=== PATIENT | male | born 1985 | race Caucasian/White ===

== ENCOUNTER 2018-06-01 10:46 | Inpatient (IN) | payer BC ==
[~2018-06-01] VITALS: Ht 177.8 cm; Wt 108.0 kg
[2018-06-01] VITALS (176 sets, daily range): BP systolic 107–116; BP diastolic 49–67; PULSE 127–142; TEMP 98.5–99; O2SAT 49–100
[~2018-06-01 10:46] MED LIST: AMBIEN 10MG10 MG PO; AZITHROMYCIN250 MG PO; MYRBETR50MG PO; NEURONTIN300 MG/CAP PO; NORCO 325 MG-51 TAB PO; PHENERGAN 25 TA25 MG PO; PREDNISONE20 MG PO; QUESTRAN4 GM/9 GM PO; VIBERZI100 MG PO; ZIANA 1.2%-0.021 GEL TP
[2018-06-01 11:40] LABS: COLLECTION METHOD CATHETER
[2018-06-01 11:43] LABS: HEMATOCRIT 38.2 % (42.0-52.0); HEMOGLOBIN 12.2 g/dl (13.5-18.0); MEAN CELL VOLUME 77 fl (80.0-100.0); MEAN CORPUSCULAR HEMOGLOBIN 25 pg (27.0-31.0); MEAN CORPUSCULAR HGB CONC 32 g/dl (33.0-37.0); MEAN PLATELET VOLUME 9.2 fl (7.4-10.4); PLATELET COUNT 202 K/mm3 (130-400); RED BLOOD COUNT 4.95 M/mm3 (4.20-5.60); REDCELL DISTRIBUTION WIDTH-CV 13.7 % (11.5-14.5)
[2018-06-01 11:53] LABS: INR 1.4 (0.8-3.0)
[2018-06-01 11:53] LABS: MUCOUS Present /lpf; PH 5 (5-8); SQUAMOUS EPITHELIAL None Seen /hpf; URINE APPEARANCE Hazy; URINE BACTERIA Rare /hpf; URINE BILIRUBIN Negative (NEGATIVE); URINE BLOOD 1+ (NEGATIVE); URINE COLOR Yellow; URINE GLUCOSE Negative (NEGATIVE); URINE KETONE Negative (NEGATIVE); URINE LEUKOCYTE ESTERASE 3+ (NEGATIVE); URINE NITRATE Negative (NEGATIVE); URINE PROTEIN(semi-quant) Negative (NEGATIVE); URINE RBC 0-2 /hpf; URINE UROBILINOGEN Negative (NEGATIVE)
[2018-06-01 11:55] LABS: ALBUMIN 4.3 gm/dL (3.5-5.0); BILIRUBIN,TOTAL 0.2 mg/dL (0.0-1.0); CALCIUM 9.7 mg/dL (8.4-10.2); CREATININE, serum 0.85 mg/dL (0.66-1.25); POTASSIUM 3.9 mmol/L (3.4-5.0)
[2018-06-01 11:56] LABS: BAND 7 % (0-10); LYMPHOCYTE 16 % (20.0-51.0); NEUTROPHILS 67 % (42.0-75.2); PARTIAL THROMBOPLASTIN TIME 46.7 SECONDS (26.0-37.0); PLATELET ESTIMATE NORMAL (NORMAL); TOXIC GRANULATION PRESENT
[2018-06-01] MEDS ORDERED: DAZIDOX10 MG PO (12:08)
[2018-06-01 12:33] LABS: ERYTHROCYTE SEDIMENTATION RATE 33 mm/hr (0-15)
[2018-06-01] MEDS ORDERED: LOVENOX 4040 MG/0.4 SQ (15:56)
[2018-06-01] MEDS ORDERED: LIORESAL20 MG PO (17:16)
[2018-06-01] MEDS ORDERED: VALIUM 5MG T5 MG/TAB PO (17:18)
[2018-06-01] MEDS ORDERED: LIDODERM 5% PATC1 EA TP (17:20)
[2018-06-01] MEDS ORDERED: NEURONTIN400 MG/CAP PO (17:23)
[2018-06-01] MEDS ORDERED: FLONASE NASAL S16 GM NS (17:26)
[2018-06-02] VITALS (1160 sets, daily range): BP systolic 100–134; BP diastolic 50–101; PULSE 116–163; TEMP 98.2–101.4; O2SAT 41–100
[2018-06-02 05:51] LABS: MEAN CELL VOLUME 79 fl (80.0-100.0); MEAN CORPUSCULAR HGB CONC 31 g/dl (33.0-37.0); MEAN PLATELET VOLUME 9.6 fl (7.4-10.4); PLATELET COUNT 147 K/mm3 (130-400); RED BLOOD COUNT 3.75 M/mm3 (4.20-5.60); REDCELL DISTRIBUTION WIDTH-CV 13.8 % (11.5-14.5)
[2018-06-02 05:54] LABS: HEMATOCRIT 29.7 % (42.0-52.0); HEMOGLOBIN 9.3 g/dl (13.5-18.0); MEAN CORPUSCULAR HEMOGLOBIN 25 pg (27.0-31.0)
[2018-06-02 06:04] LABS: CREATININE, serum 0.83 mg/dL (0.66-1.25); POTASSIUM 4.2 mmol/L (3.4-5.0)
[2018-06-02 07:17] LABS: BAND 24 % (0-10); LYMPHOCYTE 13 % (20.0-51.0); NEUTROPHILS 55 % (42.0-75.2); PLATELET ESTIMATE NORMAL (NORMAL)
[2018-06-02 08:35] LABS: RETIC # 0.02 M/mm3 (0.02-0.16); RETIC % 0.4 % (0.5-3.52)
[2018-06-02 08:41] LABS: IRON,SERUM < 10 ug/dL (35-150)
[2018-06-02 08:51] LABS: TOTAL IRON BINDING CAPACITY 274 ug/dL (261-462)
[2018-06-02 09:17] LABS: FERRITIN 52 ng/mL (18-464)
[2018-06-03] VITALS (964 sets, daily range): BP systolic 100–130; BP diastolic 56–88; PULSE 108–126; TEMP 95–99.6; O2SAT 71–100
[2018-06-03 05:42] LABS: BASO % 0.2 % (0.0-2.0); EOS # 0.1 (0.0-0.7); EOS % 0.9 % (0-4.0); GRAN # 6.9 (1.4-6.5); GRAN % 69.8 % (42.2-75.2); LYMPH # 1.7 (1.2-3.4); LYMPH % 17.2 % (20.0-51.0); MEAN CELL VOLUME 79 fl (80.0-100.0); MEAN CORPUSCULAR HGB CONC 31 g/dl (33.0-37.0); MEAN PLATELET VOLUME 9.6 fl (7.4-10.4); MONO # 1.1 (0.1-0.6); MONO % 10.7 % (1.7-9.3); PLATELET COUNT 151 K/mm3 (130-400); RED BLOOD COUNT 3.47 M/mm3 (4.20-5.60)
[2018-06-03 05:44] LABS: HEMATOCRIT 27.3 % (42.0-52.0); HEMOGLOBIN 8.4 g/dl (13.5-18.0); MEAN CORPUSCULAR HEMOGLOBIN 24 pg (27.0-31.0)
[2018-06-03 05:54] LABS: CALCIUM 7.6 mg/dL (8.4-10.2); CREATININE, serum 0.56 mg/dL (0.66-1.25); POTASSIUM 3.5 mmol/L (3.4-5.0)
[2018-06-04 00:25] VITALS: BP 115/67; PULSE 121
[2018-06-04 04:12] VITALS: BP 131/68; PULSE 136; TEMP 99.9
[2018-06-04 06:22] LABS: BASO % 0.1 % (0.0-2.0); EOS # 0.3 (0.0-0.7); EOS % 2.8 % (0-4.0); GRAN # 6.2 (1.4-6.5); GRAN % 67.8 % (42.2-75.2); LYMPH # 1.8 (1.2-3.4); LYMPH % 19.8 % (20.0-51.0); MEAN CELL VOLUME 77 fl (80.0-100.0); MEAN CORPUSCULAR HGB CONC 32 g/dl (33.0-37.0); MEAN PLATELET VOLUME 10.2 fl (7.4-10.4); MONO # 0.8 (0.1-0.6); MONO % 9.2 % (1.7-9.3); PLATELET COUNT 233 K/mm3 (130-400); RED BLOOD COUNT 3.53 M/mm3 (4.20-5.60); REDCELL DISTRIBUTION WIDTH-CV 14.4 % (11.5-14.5)
[2018-06-04 06:32] LABS: HEMATOCRIT 27.1 % (42.0-52.0); HEMOGLOBIN 8.6 g/dl (13.5-18.0); MEAN CORPUSCULAR HEMOGLOBIN 24 pg (27.0-31.0)
[2018-06-04 06:33] LABS: CREATININE, serum 0.53 mg/dL (0.66-1.25); POTASSIUM 3.3 mmol/L (3.4-5.0)
[2018-06-04 06:55] LABS: THYROID STIMULATING HORMONE 1.17 uIU/mL (0.465-4.680)
[2018-06-04 07:47] VITALS: BP 128/73; PULSE 111; TEMP 97.4
[2018-06-04 11:34] VITALS: BP 131/76; PULSE 115; TEMP 98.4
[2018-06-04 15:12] VITALS: BP 136/78; PULSE 109; TEMP 98.4
[2018-06-04 18:51] VITALS: BP 123/77; PULSE 99; TEMP 97.5
[2018-06-05 06:08] LABS: BASO % 0.2 % (0.0-2.0); EOS # 0.3 (0.0-0.7); EOS % 3.4 % (0-4.0); GRAN % 64.3 % (42.2-75.2); LYMPH # 2.1 (1.2-3.4); LYMPH % 22.2 % (20.0-51.0); MEAN CELL VOLUME 77 fl (80.0-100.0); MEAN CORPUSCULAR HGB CONC 32 g/dl (33.0-37.0); MEAN PLATELET VOLUME 9.3 fl (7.4-10.4); MONO # 0.9 (0.1-0.6); MONO % 9.3 % (1.7-9.3); PLATELET COUNT 260 K/mm3 (130-400); RED BLOOD COUNT 3.67 M/mm3 (4.20-5.60); REDCELL DISTRIBUTION WIDTH-CV 14.4 % (11.5-14.5)
[2018-06-05 06:09] LABS: HEMATOCRIT 28.2 % (42.0-52.0); MEAN CORPUSCULAR HEMOGLOBIN 25 pg (27.0-31.0)
[2018-06-05 06:25] LABS: CALCIUM 8.2 mg/dL (8.4-10.2); CREATININE, serum 0.52 mg/dL (0.66-1.25); POTASSIUM 4.1 mmol/L (3.4-5.0)
[2018-06-05 06:38] VITALS: TEMP 101.6
[2018-06-05 07:40] VITALS: BP 123/79; PULSE 114; TEMP 100
[2018-06-05 11:20] VITALS: BP 133/81; PULSE 108; TEMP 98.8
[2018-06-05] MEDS ORDERED: COMBIRESP IH (14:26)
[2018-06-05 15:29] VITALS: BP 136/79; PULSE 102; TEMP 98.8
[2018-06-05 20:37] VITALS: BP 128/71; PULSE 104; TEMP 99
[2018-06-06 00:22] VITALS: BP 123/75; PULSE 98; TEMP 98.1
[2018-06-06 04:04] VITALS: BP 127/75; PULSE 86
[2018-06-06 07:27] LABS: MEAN CELL VOLUME 79 fl (80.0-100.0); MEAN CORPUSCULAR HGB CONC 31 g/dl (33.0-37.0); MEAN PLATELET VOLUME 9.8 fl (7.4-10.4); PLATELET COUNT 338 K/mm3 (130-400); RED BLOOD COUNT 3.86 M/mm3 (4.20-5.60); REDCELL DISTRIBUTION WIDTH-CV 14.2 % (11.5-14.5)
[2018-06-06 07:28] LABS: HEMATOCRIT 30.4 % (42.0-52.0); HEMOGLOBIN 9.4 g/dl (13.5-18.0); MEAN CORPUSCULAR HEMOGLOBIN 24 pg (27.0-31.0)
[2018-06-06 07:35] LABS: CREATININE, serum 0.45 mg/dL (0.66-1.25); POTASSIUM 4.4 mmol/L (3.4-5.0)
[2018-06-06 07:59] VITALS: BP 138/81; PULSE 88; TEMP 98.6
[2018-06-06 08:39] LABS: BAND 9 % (0-10); EOSINOPHIL 2 % (0-4); LYMPHOCYTE 41 % (20.0-51.0); NEUTROPHILS 36 % (42.0-75.2); PLATELET ESTIMATE NORMAL (NORMAL)
[2018-06-06 08:40] LABS: HYPOCHROMIA 2+; MICROCYTOSIS 1+
[2018-06-06] MEDS ORDERED: MONUROL 3 GM3 G/PKT PO (11:09)
[2018-06-06] MEDS ORDERED: FERROUS SU325 MG/TAB PO (11:09)
[2018-06-06] MEDS ORDERED: PROBIOTIC ACID1 EAC3 PO (11:10)
[2018-06-06] MEDS ORDERED: TESSALON P100 MG/CAP PO (11:10)
[2018-06-06] MEDS ORDERED: ZITHROMAX 250M250 MG PO (11:11)
== END 2018-06-06 13:51 | disposition home or self-care (01) | DRG 698 ==
LOC: COL.ER 10:46 → ICU 15:29 → MEDICAL 06-03 19:13
PROVIDERS: Hospitalist; Physician Assistant
PROC: 02HV33Z Insertion of Infusion Device into Superior Vena Cava, Percutaneous Approach (ICD-10-PCS; principal; 2018-06-03)
DX: T83.518A Infection and inflammatory reaction due to other urinary catheter, initial encounter (principal); A41.51 Sepsis due to Escherichia coli [E. coli]; N39.0 Urinary tract infection, site not specified; R00.0 Tachycardia, unspecified; D50.9 Iron deficiency anemia, unspecified; G83.89 Other specified paralytic syndromes; F41.9 Anxiety disorder, unspecified; J20.9 Acute bronchitis, unspecified; Q85.09 Other neurofibromatosis; R79.1 Abnormal coagulation profile; Z23 Encounter for immunization
CPT/HCPCS: 99222-AI; 99232-AI; 99233-AI; 99239; A4216; C1751; C1894; J0692; J0696; J1650; J2185; J3475; J7030; J7040; Q9967

== ENCOUNTER → 2018-08-05 | Outpatient (RCR) | payer BC ==
[~2018-08-05] MED LIST changes: +COMBIRESP IH; +DAZIDOX10 MG PO; +FERROUS SU325 MG/TAB PO; +FLONASE NASAL S16 GM NS; +LIDODERM 5% PATC1 EA TP; +LIORESAL20 MG PO; +LOVENOX 4040 MG/0.4 SQ; +MONUROL 3 GM3 G/PKT PO; +NEURONTIN400 MG/CAP PO; +PROBIOTIC ACID1 EAC3 PO; +TESSALON P100 MG/CAP PO; +VALIUM 5MG T5 MG/TAB PO; +ZITHROMAX 250M250 MG PO
== END | disposition home or self-care (01) ==
LOC: WSPT → WSOT 05-07 09:38 → WSC 05-10 16:30 → WSPT 05-14 11:00 → WSOT 05-18 08:15 → WSPT 05-20 09:00 → WSC 05-21 08:45 → WSOT 05-25 09:00 → WSC 06-11 09:15 → WSOT 06-15 09:00 → WSC 06-18 09:15 → WSOT 06-22 09:00 → WSC 06-25 09:15 → WSPT 07-08 09:00 → WSC 07-09 09:30 → WSPT 07-13 09:00 → WSC 07-22 09:00 → WSPT 07-23 09:45 → WSOT 10:00
DX: Z48.3 Aftercare following surgery for neoplasm (principal); Z85.848 Personal history of malignant neoplasm of other parts of nervous tissue; Q85.02 Neurofibromatosis, type 2; Z79.01 Long term (current) use of anticoagulants; Z79.899 Other long term (current) drug therapy

== ENCOUNTER 2018-11-05 09:30 | Outpatient (RCR) | payer BC | END 2018-11-08 | disposition home or self-care (01) | LOC: WSPT | DX: Q85.02 Neurofibromatosis, type 2 (principal) ==

== ENCOUNTER 2019-01-25 08:30 | Outpatient (RCR) | payer BC | END 2019-02-07 | disposition still patient (30) | LOC: WSPT | DX: C47.3 Malignant neoplasm of peripheral nerves of thorax (principal) ==

== ENCOUNTER 2019-02-25 10:45 | Outpatient (RCR) | payer BC | END 2019-03-25 15:11 | disposition home or self-care (01) | LOC: WSPT 10:45 | DX: D33.4 Benign neoplasm of spinal cord (principal) ==

== ENCOUNTER 2019-04-26 06:36 | Inpatient (IN) | payer BC ==
[2019-04-26] VITALS (487 sets, daily range): BP systolic 124–157; BP diastolic 86–108; PULSE 108–120; TEMP 97.8–99.6; O2SAT 83–100
[~2019-04-26] VITALS: Ht 177.8 cm; Wt 121.3 kg
[2019-04-26 07:07] LABS: HEMATOCRIT 46.4 % (42.0-52.0); HEMOGLOBIN 14.6 g/dl (13.5-18.0); MEAN CELL VOLUME 80 fl (80.0-100.0); MEAN CORPUSCULAR HEMOGLOBIN 25 pg (27.0-31.0); MEAN CORPUSCULAR HGB CONC 32 g/dl (33.0-37.0); MEAN PLATELET VOLUME 8.2 fl (7.4-10.4); PLATELET COUNT 281 K/mm3 (130-400); RED BLOOD COUNT 5.79 M/mm3 (4.20-5.60); REDCELL DISTRIBUTION WIDTH-CV 19.4 % (11.5-14.5)
[2019-04-26 07:21] LABS: ALBUMIN 4.1 gm/dL (3.5-5.0); BILIRUBIN,TOTAL 0.4 mg/dL (0.0-1.0); CALCIUM 9.4 mg/dL (8.4-10.2); CREATININE, serum 0.81 (0.66-1.25); POTASSIUM 4.7 mmol/L (3.4-5.0); TOTAL PROTEIN 7.5 gm/dL (6.4-8.2)
[2019-04-26 07:23] LABS: ARTERIAL BLD GAS O2 SATURATION 95.9 % (92-100); ARTERIAL BLD GAS TCO2 CT 20.4; ARTERIAL BLOOD GAS BASE EXCESS -3.1 (-2-2); ARTERIAL BLOOD GAS HCO3 19.5 meq/L (22-26); ARTERIAL BLOOD GAS PCO2 28.8 mmHg (35-45); ARTERIAL BLOOD GAS PO2 76.3 mmHg (80-100); ARTERIAL BLOOD GAS pH 7.45 (7.35-7.45)
[2019-04-26] MEDS ORDERED: DULERA1 AR1 IH (07:25)
[2019-04-26] MEDS ORDERED: LEVAQUIN 5500 MG/TA1 PO (07:26)
[2019-04-26] MEDS ORDERED: COLESTID 1GM1 G PO (07:27)
[2019-04-26] MEDS ORDERED: LOMOTIL 0.025 M1 TAB PO (07:27)
[2019-04-26] MEDS ORDERED: VIAGRA50 M1 (07:28)
[2019-04-26] MEDS ORDERED: CELEXA 20MG20 MG/TAB PO (07:28)
[2019-04-26 07:30] LABS: INR 1.3 (0.8-3.0); PROTHROMBIN TIME 15.4 SECONDS (9.7-12.8)
[2019-04-26] MEDS ORDERED: CEPHALEXIN500 M1 PO (07:31)
[2019-04-26] MEDS ORDERED: DECADRON 1MG TAB1 MG PO (07:33)
[2019-04-26 07:34] LABS: C-REACTIVE PROTEIN 19.8 mg/dL (0.0-0.9)
[2019-04-26] MEDS ORDERED: PRILOTC (07:34)
[2019-04-26 07:35] LABS: TROPONIN-I 0.04 ng/mL (0.000-0.035)
[2019-04-26] MEDS ORDERED: DANTROLENE PO (07:35)
[2019-04-26] MEDS ORDERED: SENNA-S 50 MG-81 TAB PO (07:36)
[2019-04-26] MEDS ORDERED: VIBERZI100 MG PO (07:36)
[2019-04-26] MEDS ORDERED: MS CONTIN 330 MG/TAB PO (07:36)
[2019-04-26] MEDS ORDERED: NYSTATIN OR100 MU/ML PO (07:38)
[2019-04-26 07:49] LABS: BAND 21 % (0-10); BASOPHIL 1 % (0-2); LYMPHOCYTE 5 % (20.0-51.0); METAMYELOCYTE 1 % (0-0); NEUTROPHILS 59 % (42.0-75.2)
[2019-04-26 07:50] LABS: ANISOCYTOSIS 2+; PLATELET ESTIMATE NORMAL (NORMAL); POLYCHROMASIA 1+
[2019-04-26 08:03] LABS: COLLECTION METHOD CATHETER
[2019-04-26 08:14] LABS: MUCOUS Present /lpf; PH 5 (5-8); SQUAMOUS EPITHELIAL 0-2 /hpf; URINE APPEARANCE Clear; URINE BACTERIA None Seen /hpf; URINE BILIRUBIN Negative (NEGATIVE); URINE BLOOD Negative (NEGATIVE); URINE COLOR Amber; URINE GLUCOSE Negative (NEGATIVE); URINE KETONE Trace (NEGATIVE); URINE LEUKOCYTE ESTERASE Negative (NEGATIVE); URINE NITRATE Negative (NEGATIVE); URINE PROTEIN(semi-quant) 1+ (NEGATIVE); URINE RBC 0-2 /hpf; URINE UROBILINOGEN Negative (NEGATIVE)
--- NOTE | 2019-04-26 10:45 | NUR ---
PT TAKEN VIA BED TO CT BY RN AND RT.
--- NOTE | 2019-04-26 11:15 | NUR ---
PT RETURNED FROM CT.
--- NOTE | 2019-04-26 12:07 | NUR ---
Vancomycin Initial Dosing Pharmacy Note Ordering provider: Tabby Rivera W., MD Indication/duration: PNA LABS: SCr 0.81 Recommendation: Loading dose: 1.5 grams given in ED 04/26/19 @ 0800 Maintenance dose: 1.5 grams Q8H Trough goal: 15-20 ug/mL Will continue to follow.
--- NOTE | 2019-04-26 12:22 | NUR ---
BERTO WITH US PERFORMING ECHO AND VENOUS DOPPLER.
--- NOTE | 2019-04-26 16:25 | NUR ---
METAL FABRICATION SUPERVISOR student met with the patient to discuss a discharge plan. The patient lives in [place] with his nephew and nephew's girlfriend, and a roommate. The patient is wheelchair dependent and uses not other DME. Patient reports independence with ADLs. The patient's PCP is Dr. Burt and patient receives medications from [facility] with no difficulties. The patient does not have advanced directives in the EMR but reports he is in the process of completing them. When complete they will designate his brother, Triston Washington. The patient plans to return home upon discharge with his brother Triston or patient's [id number], Marilee providing transportation. There are no additional needs at this time.
--- NOTE | 2019-04-26 19:15 | NUR ---
Bedside report received from DANIEL Sandra.
--- NOTE | 2019-04-26 20:00 | NUR ---
Patient resting in bed at this time. Friend at bedside. Patient has complaints of 8/10 pain in his back that radiates to his chest. He is requesting medications. also has complaints of heartburn and would like some more tums, To be provided. Patient is alert and oriented x4. assessment complete. Assessment reveals clear lung sounds in the upper lobes with lower lobes having fine crackles as well as being diminished. HR and rhythm are regular, patient is tachycardic. Bowel sounds active x4. Peripheral pulses are all palpable. Patient has some foliculitis to his chest with small red spots. Has ointment for it. Patient has no further needs at this time. Will return with medications. Will continue to monitor. Call light within reach.
--- NOTE | 2019-04-26 21:55 | NUR ---
Patient prepped for intubation at this time. Time out performed. Anesthesia is here to intubate. Yaritza RT and Galina RT here to assist. Asthesia draws their own medications from RSI kit. 220 - medications given at this time by anesthesia. Soft wrist restraints applied. 2202 - Patient intubated. confirmed with auscultation and CO2 monitor. BP and HR remains stable. 2206 - Intubation complete. Patient is on ventilator at this time and tolerating well. Anesthesia signs for medications and leaves. Patient prepped for Central line placement 2208 - Time out performed. All unnecessary staff removed from the room. Masks on all staff present. 2210 - Veceronium drawn up and given IV per Dr. Rey for central line placement. 2230 - Jugular line in place at this time. Vitals remain stable. 2240 - Central line complete at this time. Dressing applied and Patient placed HOB at 30 degrees for ventilation. Medications to be titrated for patient comfort as she is starting to wake up.
[2019-04-27] VITALS (744 sets, daily range): BP systolic 120–138; BP diastolic 66–91; PULSE 68–118; TEMP 97.9–98.6; O2SAT 71–100
--- NOTE | 2019-04-27 | NUR ---
Patient asleep, but awakens to name. Patient rates pain a 2/10 now since having medications. Assessment complete with no changes from previous exam. Patient has no further needs at this time. Will continue to monitor. Call light within reach.
--- NOTE | 2019-04-27 04:00 | NUR ---
Patient sleeping in bed comfortably. Patient does not want to move positions at this time. Says he is comfortable and his back is not hurting like this. Patient rates pain 3/10, which is tolerable. Assessment complete with no changes from previous exam. Patient has no further needs, Will continue to monitor. Call light within reach.
[2019-04-27 06:26] LABS: BASO % 0.4 % (0.0-2.0); GRAN # 4.7 (1.4-6.5); GRAN % 84.4 % (42.2-75.2); HEMATOCRIT 41.6 % (42.0-52.0); HEMOGLOBIN 12.9 g/dl (13.5-18.0); LYMPH # 0.5 (1.2-3.4); LYMPH % 9.4 % (20.0-51.0); MEAN CELL VOLUME 82 fl (80.0-100.0); MEAN CORPUSCULAR HEMOGLOBIN 25 pg (27.0-31.0); MEAN CORPUSCULAR HGB CONC 31 g/dl (33.0-37.0); MEAN PLATELET VOLUME 9.4 fl (7.4-10.4); MONO # 0.3 (0.1-0.6); MONO % 4.4 % (1.7-9.3); PLATELET COUNT 236 K/mm3 (130-400); RED BLOOD COUNT 5.07 M/mm3 (4.20-5.60); REDCELL DISTRIBUTION WIDTH-CV 18.6 % (11.5-14.5)
[2019-04-27 06:55] LABS: CALCIUM 8.9 mg/dL (8.4-10.2); CREATININE, serum 0.51 (0.66-1.25)
--- NOTE | 2019-04-27 08:00 | NUR ---
Shift assessment complete at this time. Plan of care reviewed at bedside with patient. Additional time taken to address any other needs or concerns. Vitals stable at this time. Pt reports mild to moderate back pain. Pt states that pain is tolerable until scheduled MS contin can be administered. Pt denies any other pains or discomforts. Bed in low position, call light within reach. Will continue to monitor.
--- NOTE | 2019-04-27 12:00 | NUR ---
Pt resting comfortably in bed. Reports back pain as tolerable and declines intervention at this time. Vitals stable at this time. Pt denies any other pains or discomfort at this time. Bed in low et locked position, call light within reach. Will continue to monitor.
--- NOTE | 2019-04-27 16:00 | NUR ---
Pt awake resting in bed. Reports mild to moderate back pain that is increasing. Will administer PRN analgesic per orders. Denies any other pain or complaints. Vitals stable at this time. Bed in low position, call light within reach, will continue to monitor.
--- NOTE | 2019-04-27 17:58 | NUR ---
VANC TGH = 6.45 W/1.5GM Q8H, INCREASE FREQ TO Q6H
--- NOTE | 2019-04-27 19:15 | NUR ---
Received report from DANEIL Berry.
--- NOTE | 2019-04-27 19:23 | NUR ---
Bedside report given to DANIEL Gustafson.
--- NOTE | 2019-04-27 20:00 | NUR ---
Patient remains on AirVo at 40L/min with FiO2 of 34% and is tolerating well.
[2019-04-28] VITALS (293 sets, daily range): BP systolic 114–135; BP diastolic 60–86; PULSE 78–117; TEMP 97.9–98.2; O2SAT 80–100
[2019-04-28 05:27] LABS: BASO % 0.1 % (0.0-2.0); GRAN # 8.5 (1.4-6.5); GRAN % 89.8 % (42.2-75.2); HEMATOCRIT 38.9 % (42.0-52.0); HEMOGLOBIN 11.9 g/dl (13.5-18.0); LYMPH # 0.3 (1.2-3.4); MEAN CELL VOLUME 83 fl (80.0-100.0); MEAN CORPUSCULAR HEMOGLOBIN 26 pg (27.0-31.0); MEAN CORPUSCULAR HGB CONC 31 g/dl (33.0-37.0); MEAN PLATELET VOLUME 9.1 fl (7.4-10.4); MONO # 0.6 (0.1-0.6); MONO % 5.9 % (1.7-9.3); PLATELET COUNT 270 K/mm3 (130-400); RED BLOOD COUNT 4.67 M/mm3 (4.20-5.60); REDCELL DISTRIBUTION WIDTH-CV 18.6 % (11.5-14.5)
[2019-04-28 05:41] LABS: CALCIUM 8.6 mg/dL (8.4-10.2); CREATININE, serum 0.5 (0.66-1.25); POTASSIUM 4.2 mmol/L (3.4-5.0)
--- NOTE | 2019-04-28 07:00 | NUR ---
Gave report to DANIEL Spain.
--- NOTE | 2019-04-28 07:00 | NUR ---
Patient report recieved from DANIEL Gustafson. Patient resting in bed with MIVF running at ordered rate to uncomplicated LAC IV. Patrick catheter in place with positive UO. Alesha denies needs at this time. Care assumed.
--- NOTE | 2019-04-28 09:10 | NUR ---
Dr. Rivera rounds at this time. CPOE orders entered for patient transfer to medical floor. Care ongoing.
--- NOTE | 2019-04-28 09:27 | NUR ---
Report provided to DANIEL Cee.
--- NOTE | 2019-04-28 09:39 | NUR ---
The patient has orders to move to the medical floor this day.
--- NOTE | 2019-04-28 09:57 | NUR ---
Initial visit; Patient thanked Seismograph Chief for looking in on him and offering God's blessings.
--- NOTE | 2019-04-28 12:00 | NUR ---
Pt assessment complete. Alert and oriented x4. On 4LO2 via NC, SpO2 100%. Denies SOB. Pt c/o back pain, rate 5-6. PRN oxycodone given as requested bt patient. Patient able to move self in bed. Needs 2 person assist to/from bedside commode. Able to make needs known. Patrick cath secured and intact. Urine clear, yellow. IV to RAC and LAC CDI, patent. Needs met. Call light within reach.
--- NOTE | 2019-04-28 18:28 | NUR ---
Pt sitting up comfortably in bed talking with friend at bedside. Friend brought own dinner for pt. Pt requested no need for dinner tray. Current pain level to back was 4/10 which is bearable for him. However, pt requested PRN valium for facial redness and bilateral lower extremity spasms. Denies SOB or any other discomfort. On 4L O2 via NC. Patrick catheter intact and draining clear yellow urine. On tele monitor, sinus tach, HR 116. Needs met at this time. Personal items and call light within reach.
--- NOTE | 2019-04-28 20:25 | NUR ---
Up to bedside commode and returned to bed. Assessment complete. Left lower lobe crackles otherwise clear. Heart sounds normal. Bowels active x4. Pulses present throughout. Bilateral lower leg edema +2 present. Patrick to dependent drainage-clear yellow urine. Rating pain in legs and back 6/10. Provided with scheduled MS contin CR and PRN oxycodone at this time. Denies other needs. Call light in reach.
--- NOTE | 2019-04-29 00:34 | NUR ---
Resting in bed. Denies needs. Call light in reach.
[2019-04-29 03:32] VITALS: BP 105/67; PULSE 94; TEMP 98
--- NOTE | 2019-04-29 05:14 | NUR ---
Rating pain 6/10 in back. Provided with PRN oxycodone at this time. Denies other needs.
--- NOTE | 2019-04-29 05:46 | NUR ---
Patient required x2 doses of oxycodone during night. x1 bowel movement at beginning of night. Otherwise uneventful. Resting in bed this AM. Call light in reach.
--- NOTE | 2019-04-29 07:13 | NUR ---
Report given to DANIEL Platt
[2019-04-29 08:26] LABS: EOS % 0.5 % (0-4.0); GRAN # 4.5 (1.4-6.5); GRAN % 73.3 % (42.2-75.2); HEMOGLOBIN 10.3 g/dl (13.5-18.0); LYMPH # 0.7 (1.2-3.4); LYMPH % 10.7 % (20.0-51.0); MEAN CELL VOLUME 81 fl (80.0-100.0); MEAN CORPUSCULAR HEMOGLOBIN 25 pg (27.0-31.0); MEAN CORPUSCULAR HGB CONC 31 g/dl (33.0-37.0); MEAN PLATELET VOLUME 8.6 fl (7.4-10.4); MONO # 0.9 (0.1-0.6); MONO % 14.5 % (1.7-9.3); PLATELET COUNT 272 K/mm3 (130-400); RED BLOOD COUNT 4.08 M/mm3 (4.20-5.60); REDCELL DISTRIBUTION WIDTH-CV 18.9 % (11.5-14.5)
[2019-04-29 08:28] LABS: HEMATOCRIT 33.2 % (42.0-52.0)
[2019-04-29 08:36] VITALS: BP 140/74; PULSE 80; TEMP 98
[2019-04-29 08:44] LABS: CALCIUM 8.6 mg/dL (8.4-10.2); CREATININE, serum 0.55 (0.66-1.25); MAGNESIUM 2.1 mg/dL (1.6-2.3); POTASSIUM 3.9 mmol/L (3.4-5.0)
--- NOTE | 2019-04-29 09:31 | NUR ---
Patient inquired about receiving Miralax and Senna d/t fear of having loose stools when discharged. This student nurse consulted with primary nurse who stated to hold the Miralax and administer the Senna. Senna administered and Miralax held.
[2019-04-29 09:49] VITALS: BP 119/62; PULSE 120; TEMP 98.4
[2019-04-29] MEDS ORDERED: LEVAQUIN 5500 MG/TA1 PO (10:13)
[2019-04-29] MEDS ORDERED: PREDNISONE20 MG PO (10:20)
--- NOTE | 2019-04-29 10:41 | NUR ---
Sock Folder attended clinical rounds with the team. SW followed up with patient who is to discharge today. Patient has no concerns about returning home upon discharge.
[2019-04-29 11:40] VITALS: BP 137/109; PULSE 114; TEMP 97.9
--- NOTE | 2019-04-29 13:15 | NUR ---
DISCHARGE INFORMATION GIVEN TO PT, SIGANTURES OBTIANED. NO QUESTIONS ASKED. PT STATED HE WASNT CONVINCED ON HIS DISCHARGE RATIONELLE AND DX. IVS AND SONG REMOVED BY STUDENT NURSE. PT HAS BEEN ON RA THIS DAY WITHOUT ISSUE. PT REQUESTED PAIN PILL PRIOR TO DC TO HELP WITH PAIN FROM TRASNFERING SEVERAL TIMES TO GET OUT OF FACTILITY. NO OTHER ISSUES OR CONSERNS VOICED.
--- NOTE | 2019-04-29 13:54 | NUR ---
Primary nurse was assisted with [phone] patient care by [employer] student Mishel Raphael and [employer] instructor Freida Hunt RN-.
== END 2019-04-29 13:15 | disposition home or self-care (01) | DRG 189 ==
LOC: COL.ER 06:36 → ICU 07:51 → MEDICAL 04-28 10:50
PROVIDERS: Emergency Medicine; Nurse Practitioner Family; Physician Assistant; ADMIT Student in an Organized Health Care Education/Training Program
DX: J96.01 Acute respiratory failure with hypoxia (principal); I21.A1 Myocardial infarction type 2; J18.0 Bronchopneumonia, unspecified organism; K56.7 Ileus, unspecified; E66.9 Obesity, unspecified; R00.0 Tachycardia, unspecified; R73.9 Hyperglycemia, unspecified; K59.00 Constipation, unspecified; G83.10 Monoplegia of lower limb affecting unspecified side; Q85.00 Neurofibromatosis, unspecified; Z68.38 Body mass index [BMI] 38.0-38.9, adult; Z99.3 Dependence on wheelchair; Z92.3 Personal history of irradiation
CPT/HCPCS: 99223-AI; 99232-AI; 99239; J1650; J1940; J1956; J2543; J2920; J3370; J7030; J7050; J7512; Q9967

== ENCOUNTER 2019-06-24 12:45 | Outpatient (RCR) | payer BC ==
[~2019-06-24 12:45] MED LIST changes: +CELEXA 20MG20 MG/TAB PO; +CEPHALEXIN500 M1 PO; +COLESTID 1GM1 G PO; +DANTROLENE PO; +DECADRON 1MG TAB1 MG PO; +DULERA1 AR1 IH; +LEVAQUIN 5500 MG/TA1 PO; +LOMOTIL 0.025 M1 TAB PO; +MS CONTIN 330 MG/TAB PO; +NYSTATIN OR100 MU/ML PO; +PRILOTC; +SENNA-S 50 MG-81 TAB PO; +VIAGRA50 M1
== END 2019-06-28 | disposition home or self-care (01) ==
LOC: WSPT
DX: Q85.02 Neurofibromatosis, type 2 (principal)

== ENCOUNTER 2019-09-14 14:15 | Outpatient (RCR) | payer BC | END 2019-10-05 | disposition home or self-care (01) | LOC: WSPT | DX: Q85.02 Neurofibromatosis, type 2 (principal) ==

== ENCOUNTER 2019-11-01 19:36 | Emergency (ER) | payer BC ==
[~2019-11-01] VITALS: Ht 177.8 cm; Wt 113.6 kg
[2019-11-01 19:45] VITALS: BP 134/84; TEMP 98
[2019-11-01 21:40] VITALS: PULSE 98
== END 2019-11-01 21:40 | disposition home or self-care (01) ==
LOC: COL.ER 19:36
DX: S29.9XXA Unspecified injury of thorax, initial encounter (principal); Q85.02 Neurofibromatosis, type 2; R40.2412 Glasgow coma scale score 13-15, at arrival to emergency department; W05.0XXA Fall from non-moving wheelchair, initial encounter; Y92.009 Unspecified place in unspecified non-institutional (private) residence as the place of occurrence of the external cause
CPT/HCPCS: A9284; J3010

== ENCOUNTER → 2020-01-13 | Outpatient (CLI) | payer BC | LOC: COL.RAD 10:55 | DX: R05 Cough (principal) ==

== ENCOUNTER 2020-02-15 15:00 | Outpatient (RCR) | payer BC | END 2020-02-29 | LOC: WSC | DX: Q85.00 Neurofibromatosis, unspecified (principal) ==

== ENCOUNTER 2020-11-01 22:00 | Emergency (ER) | payer OTHER, BC, MEDICARE ==
[~2020-11-01] VITALS: Ht 177.8 cm; Wt 163.6 kg
[2020-11-01 22:02] VITALS: TEMP 96
[2020-11-01 23:53] VITALS: BP 148/101; PULSE 99
== END 2020-11-01 23:47 | disposition home or self-care (01) ==
LOC: COL.ER 22:00
DX: S29.012A Strain of muscle and tendon of back wall of thorax, initial encounter (principal); R60.0 Localized edema; Z87.828 Personal history of other (healed) physical injury and trauma; Z88.1 Allergy status to other antibiotic agents; Z98.890 Other specified postprocedural states; Z79.51 Long term (current) use of inhaled steroids; V43.52XA Car driver injured in collision with other type car in traffic accident, initial encounter

== ENCOUNTER → 2020-12-17 | Outpatient (CLI) | payer OTHER | LOC: COL.RAD 07:02 | DX: C72.0 Malignant neoplasm of spinal cord (principal); C79.89 Secondary malignant neoplasm of other specified sites; Z98.1 Arthrodesis status; V89.2XXD Person injured in unspecified motor-vehicle accident, traffic, subsequent encounter | CPT/HCPCS: A9585 ==

== ENCOUNTER → 2021-04-01 | Outpatient (CLI) | payer MEDICARE, BC | LOC: COL.RAD 10:38 | DX: K21.9 Gastro-esophageal reflux disease without esophagitis (principal); Z92.3 Personal history of irradiation; Z92.21 Personal history of antineoplastic chemotherapy ==

== ENCOUNTER 2021-10-23 11:05 | Outpatient (RCR) | payer MEDICARE, OTHER | END 2021-11-02 | disposition still patient (30) | LOC: WSPT | DX: M54.9 Dorsalgia, unspecified (principal); R29.898 Other symptoms and signs involving the musculoskeletal system ==

== ENCOUNTER 2021-11-27 08:00 | Outpatient (RCR) | payer MEDICARE, OTHER | END 2021-12-03 | disposition home or self-care (01) | LOC: WSPT | DX: Q85.00 Neurofibromatosis, unspecified (principal); M54.9 Dorsalgia, unspecified; R29.898 Other symptoms and signs involving the musculoskeletal system; R53.1 Weakness ==

== ENCOUNTER 2022-01-01 09:45 | Outpatient (RCR) | payer MEDICARE, OTHER | END 2022-01-02 | disposition home or self-care (01) | LOC: WSPT | DX: M54.9 Dorsalgia, unspecified (principal); R29.898 Other symptoms and signs involving the musculoskeletal system ==

== ENCOUNTER 2022-01-31 13:30 | Outpatient (RCR) | payer MEDICARE, OTHER | END 2022-02-02 | disposition home or self-care (01) | LOC: WSPT | DX: Q85.00 Neurofibromatosis, unspecified (principal); R29.898 Other symptoms and signs involving the musculoskeletal system; M54.9 Dorsalgia, unspecified ==

== ENCOUNTER 2022-02-19 09:00 | Outpatient (RCR) | payer MEDICARE, OTHER | END 2022-03-05 | disposition home or self-care (01) | LOC: WSPT | DX: M54.9 Dorsalgia, unspecified (principal); R53.1 Weakness; Q85.00 Neurofibromatosis, unspecified ==

== ENCOUNTER 2023-12-21 12:49 | Inpatient (IN) | payer MEDICARE, OTHER ==
[~2023-12-21] VITALS: Ht 177.8 cm; Wt 124.5 kg
[2023-12-21] MEDS ORDERED: Acetaminophen 325 MG TAB PO ONE (13:45)
[2023-12-21] MEDS ORDERED: NS 1,000 ML IV ONE (13:45)
[2023-12-21] MEDS ORDERED: Albuterol/Ipratropium 3 MG-0.5 MG/3 ML Neb Soln IH ONE (13:45)
[2023-12-21] MEDS ORDERED: NEURONTIN600 MG/TAB PO (13:53)
[2023-12-21] MEDS ORDERED: DANTRIUM100 MG PO (13:54)
[2023-12-21] MEDS ORDERED: CIALIS5 MG PO (13:54)
[2023-12-21] MEDS ORDERED: REGLAN 10MG10 MG/TAB PO (13:55)
[2023-12-21] MEDS ORDERED: ZOFRAN ODT8 MG PO ×2 (13:55→14:43)
[2023-12-21] MEDS ORDERED: NEOMYCIN IL (13:56)
[2023-12-21] MEDS ORDERED: [UNRECOGNIZED DRUG - OTHER] IL (13:56)
[2023-12-21] MEDS ORDERED: CELEXA40 MG PO (13:57)
[2023-12-21] MEDS ORDERED: LEVSIN 0.10.125 MG/T PO (13:57)
[2023-12-21] MEDS ORDERED: TESSALON P100 MG/CAP PO (13:58)
[2023-12-21 13:59] LABS: BASO % 0.3 % (0.0-2.0); EOS # 0.1 K/mm3 (0.0-0.7); EOS % 0.6 % (0.0-4.0); GRAN # 11.4 K/mm3 (1.4-6.5); GRAN % 81.4 % (42.2-75.2); HEMATOCRIT 37.5 % (42.0-52.0); HEMOGLOBIN 11.7 g/dl (13.5-18.0); LYMPH # 1.1 K/mm3 (1.2-3.4); LYMPH % 7.8 % (20.0-51.0); MEAN CELL VOLUME 81 fl (80.0-100.0); MEAN CORPUSCULAR HEMOGLOBIN 25 pg (27-31); MEAN CORPUSCULAR HGB CONC 31 g/dl (33.0-37.0); MEAN PLATELET VOLUME 9.1 fl (7.4-10.4); MONO # 1.3 K/mm3 (0.1-0.6); PLATELET COUNT 364 K/mm3 (130-400); RED BLOOD COUNT 4.65 M/mm3 (4.20-5.60); REDCELL DISTRIBUTION WIDTH-CV 15.2 % (11.5-14.5)
[2023-12-21 14:35] LABS: ALANINE AMINOTRANSFERASE 12 U/L (0-55); ALBUMIN 3.2 g/dL (3.5-5.0); ALKALINE PHOSPHATASE 88 U/L (40-150); ANION GAP 12 mmol/L (7-16); AST,SGOT 18 U/L (5-34); BILIRUBIN,TOTAL 0.2 mg/dL (0.2-1.2); BLOOD UREA NITROGEN 10 mg/dL (9-21); C-REACTIVE PROTEIN 13.79 mg/dL (0.00-0.50); CALCIUM 9.5 mg/dL (8.4-10.2); CHLORIDE 101 mEq/L (98-107); CREATININE, serum 0.67 mg/dL (0.72-1.25); GLUCOSE 125 mg/dL (70-99); POTASSIUM 3.8 mEq/L (3.5-4.5); SODIUM 137 mEq/L (136-145); TOTAL PROTEIN 7.5 g/dl (6.2-8.1)
[2023-12-21] MEDS ORDERED: ROXICODONE15 MG PO (14:40)
[2023-12-21] MEDS ORDERED: VALIUM 10MG10 MG/TAB PO (14:41)
[2023-12-21] MEDS ORDERED: XANAX 1MG1 MG PO (14:44)
[2023-12-21 14:46] LABS: TROPONIN-I < 0.010 ng/mL (0.00-0.033)
[2023-12-21] MEDS ORDERED: SANCTURA XR60 MG PO (14:52)
[2023-12-21] MEDS ORDERED: PROTONIX20 MG PO (14:53)
[2023-12-21] MEDS ORDERED: NS 100 ML IV SCH (14:54)
[2023-12-21] MEDS ORDERED: Iohexol 300 - 100 ML VIAL IV ONE (14:54)
[2023-12-21] MEDS ORDERED: cefTRIAXone 1 G in Water For Injection,Sterile 10 ML IV ONE (15:45)
[2023-12-21] MEDS ORDERED: predniSONE 20 MG TAB PO SCH (16:22)
[2023-12-21] MEDS ORDERED: Benzonatate 100 MG CAP PO SCH (16:23)
[2023-12-21] MEDS ORDERED: guaiFENesin/Dextromethorphan Oral Soln 200-20 MG/10 ML UD PO PRN (16:30)
[2023-12-21] MEDS ORDERED: Albuterol/Ipratropium 3 MG-0.5 MG/3 ML Neb Soln IH PRN (16:30)
[2023-12-21] MEDS ORDERED: oxyCODONE 5 MG TAB PO PRN (16:30)
[2023-12-21] MEDS ORDERED: ALPRAZolam 0.5 MG TAB PO PRN (16:30)
[2023-12-21] MEDS ORDERED: Acetaminophen 500 MG TAB PO PRN (16:30)
[2023-12-21] MEDS ORDERED: Hyoscyamine 0.125 MG Sublingual TAB PO PRN (16:30)
[2023-12-21] MEDS ORDERED: Ondansetron 4 MG/2 ML VIAL IV PRN (16:30)
[2023-12-21] MEDS ORDERED: Diphenoxylate/Atropine 2.5-0.025 MG TAB PO PRN (16:30)
[2023-12-21 16:33] LABS: COLLECTION METHOD CATHETER
[2023-12-21 16:40] LABS: PH 5.5 (5.0-8.5); URINE APPEARANCE CLEAR (CLEAR/HAZY); URINE BLOOD NEGATIVE (NEGATIVE); URINE COLOR Dark Yellow (YELLOW); URINE GLUCOSE NEGATIVE (NEGATIVE); URINE KETONE NEGATIVE (NEGATIVE); URINE NITRATE NEGATIVE (NEGATIVE); URINE PROTEIN(semi-quant) NEGATIVE (NEGATIVE); URINE UROBILINOGEN 0.2 E.U/dL (0.2-1.0)
[2023-12-21] MEDS ORDERED: Azithromycin 250 MG TAB PO SCH (17:00)
[2023-12-21] MEDS ORDERED: Baclofen 10 MG TAB PO SCH (17:00)
[2023-12-21] MEDS ORDERED: Gabapentin 300 MG CAP PO SCH (17:00)
[2023-12-21 17:36] VITALS: BP_SYST 131
[2023-12-21] MEDS ORDERED: Metoclopramide 10 MG TAB PO SCH (18:00)
--- NOTE | 2023-12-21 18:30 | NUR ---
Pt up to medical floor from ED. Alert and oriented x4. C/O back pain, chronic. PRN given as ordered. Paraplegic, heels elevated, repositioned per pt request. Friend at the bedside. Admission assessment completed. Nasal cannula in place, shortness of breath on exertion. Patrick catheter inserted per order, draining clear yellow urine. Bed in lowest position with call light within reach.
[2023-12-21 19:16] VITALS: BP 120/75; PULSE 98; TEMP 98.3
[2023-12-21] MEDS ORDERED: Albuterol/Ipratropium 3 MG-0.5 MG/3 ML Neb Soln IH SCH (20:00)
[2023-12-21 21:00] VITALS: BP_SYST 120
[2023-12-21] MEDS ORDERED: diazePAM 10 MG TAB PO SCH (21:00)
[2023-12-21] MEDS ORDERED: Zolpidem 10 MG TAB PO SCH (21:00)
[2023-12-21 22:40] VITALS: BP 119/76; PULSE 93; TEMP 98
[2023-12-22] VITALS (12 sets, daily range): BP systolic 119–147; BP diastolic 79–89; PULSE 91–106; TEMP 97.7–98.5
--- NOTE | 2023-12-22 01:02 | NUR ---
patient lying in bed, alert and oriented x4. denies chest pain and shortness of breath. dry intermittent cough, BLE nonpitting edema, chest port, reddness on heels, heel floated on pillows. patient diaphoretic, temperature within normal range, room temp cooled, cool rage applied to back of neck and fan provided, improvements noted. 2126- Dr. Sow notified of patient request to switch morphine from scheduled in AM to PRN, orders received and initiated. pt has no further needs, questions, or concerns at this time. fall precautions in place, call light within reach. will continue to monitor.
[2023-12-22 06:49] LABS: BASO % 0.2 % (0.0-2.0); EOS % 0.4 % (0.0-4.0); GRAN # 8.8 K/mm3 (1.4-6.5); GRAN % 82.1 % (42.2-75.2); LYMPH # 0.9 K/mm3 (1.2-3.4); LYMPH % 8.5 % (20.0-51.0); MEAN CELL VOLUME 79 fl (80.0-100.0); MEAN CORPUSCULAR HEMOGLOBIN 25 pg (27-31); MEAN CORPUSCULAR HGB CONC 31 g/dl (33.0-37.0); MEAN PLATELET VOLUME 8.9 fl (7.4-10.4); MONO # 0.8 K/mm3 (0.1-0.6); MONO % 7.4 % (1.7-9.3); PLATELET COUNT 326 K/mm3 (130-400); RED BLOOD COUNT 4.46 M/mm3 (4.20-5.60); REDCELL DISTRIBUTION WIDTH-CV 14.8 % (11.5-14.5)
[2023-12-22 06:51] LABS: HEMATOCRIT 35.3 % (42.0-52.0)
--- NOTE | 2023-12-22 07:22 | NUR ---
PATIENT ON 2LPM, SPO2 95%, HR89, PRODUCTIVE COUGH, YELLOW THICK SPUTUM, BS COARSE THROUGHOUT. SYED SCHULTE
[2023-12-22 07:25] LABS: CALCIUM 9.2 mg/dL (8.4-10.2); CREATININE, serum 0.6 mg/dL (0.72-1.25); MAGNESIUM 2.2 mg/dL (1.6-2.6); POTASSIUM 4.1 mEq/L (3.5-4.5)
--- NOTE | 2023-12-22 08:45 | NUR ---
Patient awake and resting in bed. Alert and oriented and in no distress. Has a productive cough with large amount of yellow sputum. Patient has a strong cough reflex. Reporting some back pain which is chronic in nature. Will administer PRN pain medication. otherwise denies any concerns or complaints at this time. Call light left within reach.
[2023-12-22] MEDS ORDERED: Mirabegron ER 50 MG TAB PO SCH (09:00)
[2023-12-22] MEDS ORDERED: Patient's Own Medication Item PO SCH (09:00)
[2023-12-22] MEDS ORDERED: [UNRECOGNIZED DRUG - OTHER] PO SCH (09:00)
[2023-12-22] MEDS ORDERED: Citalopram 20 MG TAB PO SCH (09:00)
[2023-12-22] MEDS ORDERED: cefTRIAXone 1 G in Water For Injection,Sterile 10 ML IV SCH (09:00)
[2023-12-22] MEDS ORDERED: TROSPIUM 60 MG PO SCH (09:00)
--- NOTE | 2023-12-22 14:33 | NUR ---
easement worker and Student met with patient and his friend/roommate, Tabby, to discuss discharge planning. Patient lives in [place] with his roommates. Patient reports he is legally , his next of kin would be his two brothers, Sotero Goldstein# [phone]. PCP is Dr. Burt, pharmacy is [facility]. No issues affording medications. Insurance is only Medicare A and B, patient reports he does not have for Life which has been listed on his facesheet. No DPOA-HC but reports he knows he should get one established. SW provided a blank form for him to review, patient may want to complete at a later date. DME includes hearing aides, smart vest, wheelchair, lift, shower chair, stair lift chair, platforms lift for his vehicle and hand controls for his car. Patient reports to be independent with most ADLS occasionally his friends may need to assist with putting on socks or his shorts. Patient's friend stated he has no issues with helping him when he needs something but reports he is mostly independent with everything. Patient is currently on oxygen but is not normally on oxygen at home. VALERY explained if patient needs oxygen at time of discharge, social work would assist with this. Patient understood. Patient is able to transport himself to and from appointments. Patient would like to return home at time of discharge. Discharge plan: Home
--- NOTE | 2023-12-22 15:38 | NUR ---
D: Director Of Business Development stopped by room on rounds. A: Pt was resting and content. Pt has no needs right now. P: Director Of Business Development informed pt that if he needed anything to let his nurse know. Director Of Business Development will follow up as needed.
--- NOTE | 2023-12-22 21:40 | NUR ---
Patient resting in bed. Rates his pain at 6/10, prn pain meds given. Needs met. Assessment complete. IV in left AC flushes easily without complications. Call light and personal items in reach. Bed in low positoin and bed alarm on.
[2023-12-23] VITALS (12 sets, daily range): BP systolic 113–144; BP diastolic 65–86; PULSE 98–111; TEMP 97.5–99.4
--- NOTE | 2023-12-23 06:05 | NUR ---
Patient resting in bed with eyes closed. Respirations even and unlaborded. No signs of pain or needs at this time. No events over night. Call ligth and personal items in reach. Bed in low position and bed alarm on.
--- NOTE | 2023-12-23 09:00 | NUR ---
Patient resting in bed, alert and oriented x4, states chronic pain in his back 12/13 and asks for PRN meds, provided. Pt at RA sat 96%. Assessment completed, meds given. Assissted to the commode. Pt gatting his breakfast now. No other needs at this time. Call light within reach.
--- NOTE | 2023-12-23 21:30 | NUR ---
Patient resting in bed. Assissted patient to the commode and back to bed via slide board and 2 person assist. Rates his pain at 7/10, prn pain meds given. Needs met. Assessment complete. IV in left AC flushes easily without complications. Call light and personal items in reach. Bed in low position.
[2023-12-24] VITALS (7 sets, daily range): BP systolic 121–148; BP diastolic 75–96; PULSE 93–112; TEMP 97.9–98.1
--- NOTE | 2023-12-24 07:52 | NUR ---
Bedside report received from DANIEL Ascencio. Pt is awake in bed watching TV with no complaints. Call light within reach.
[2023-12-24] MEDS ORDERED: diazePAM 10 MG TAB PO SCH (09:00)
[2023-12-24] MEDS ORDERED: SODIUM FLUORID100 ML DT (10:07)
[2023-12-24] MEDS ORDERED: PROAIR HFA0.09 MG/AC IH (10:26)
[2023-12-24] MEDS ORDERED: CEFTIN500 MG PO (10:27)
[2023-12-24] MEDS ORDERED: DOXYCYCLINE HY100 MG PO (10:28)
[2023-12-24] MEDS ORDERED: TESSALON P100 MG/CAP PO ×2 (10:29→10:38)
[2023-12-24] MEDS ORDERED: ALBUTEROL1.25 MG/3 IH (10:38)
--- NOTE | 2023-12-24 12:55 | NUR ---
Discharge instructions provided to pt and pt verbalized understanding of discharge paperwork. INT to LAC discontinued with tip intact. Pt tolerated well with no complaints. VSS upon discharge. Patrick catheter discontinued with tip intact. Pt tolerated well with no complaints. Patrick balloon emptied 9cc of water. Assisted pt into wheelchair and into family friends care upon leaving facility.
== END 2023-12-24 12:50 | disposition home or self-care (01) | DRG 871 ==
LOC: COL.ER 12:49 → MEDICAL 15:59
PROVIDERS: Nurse Practitioner; ADMIT Internal Medicine
DX: A41.9 Sepsis, unspecified organism (principal); J18.1 Lobar pneumonia, unspecified organism; J96.01 Acute respiratory failure with hypoxia; C47.9 Malignant neoplasm of peripheral nerves and autonomic nervous system, unspecified; E66.9 Obesity, unspecified; G90.4 Autonomic dysreflexia; G83.9 Paralytic syndrome, unspecified; Z20.822 Contact with and (suspected) exposure to COVID-19; L89.90 Pressure ulcer of unspecified site, unspecified stage; B95.3 Streptococcus pneumoniae as the cause of diseases classified elsewhere; R91.8 Other nonspecific abnormal finding of lung field; Z99.3 Dependence on wheelchair; Z87.440 Personal history of urinary (tract) infections; Z88.8 Allergy status to other drugs, medicaments and biological substances; Z79.899 Other long term (current) drug therapy; Z68.39 Body mass index [BMI] 39.0-39.9, adult
CPT/HCPCS: J0696; J1650; J2405; J7030; J7512; Q9967